=== PATIENT | female | born 1925 | race Caucasian/White ===

== ENCOUNTER 2016-06-12 17:45 | Inpatient (IN) | payer MEDICARE ==
--- NOTE | 2016-06-12 19:06 | EKG REPORT ---
SEVERITY:- ABNORMAL ECG - SINUS BRADYCARDIA REPOL ABNRM SUGGESTS ISCHEMIA, DIFFUSE LEADS : Confirmed by: Cain Felix MD 12-Jun-2016 19:05:49
--- NOTE | 2016-06-12 19:22 | ER Document Report ---
ED General - General Chief Complaint: Fainting Stated Complaint: EVALUATION Notes: Patient is an 89-year-old female with past medical history of hypertension, hypothyroidism, hyperlipidemia, and bradycardia as well as mild dementia who presents from her primary doctor's office with concerns of an episode of syncope yesterday as well as ongoing bradycardia. Patient was hospitalized in August 2015 for a similar presentation and was transferred to [facility] but informs me that they did not want to place a pacemaker at that time as they did not feel that her bradycardia was the cause of her episodes of syncope. She denies any symptoms today. Denies any symptoms at time of evaluation. States that her episode of syncope occurred yesterday while she was sweeping her steps. States she became lightheaded and fell down on the ground. Denies any significant trauma during that event. Nothing seems to trigger her episodes of syncope. Nothing prevents them or improves them. Denies any recent medication changes. At the time of my assessment she denies any chest pain, shortness of breath, weakness or numbness. TRAVEL OUTSIDE OF THE [place] IN LAST 30 DAYS: No - Related Data Allergies/Adverse Reactions: adhesive tape [Adhesive Tape] Allergy (Unknown, Verified 06/12/16 23:59) Sulfa (Sulfonamide Antibiotics) Allergy (Unknown, Verified 06/12/16 23:59) Home Medications: Current Home Medications Levothyroxine Sodium [Synthroid 0.075 mg Tablet] 0.075 mg PO DAILY 06/12/16 [ History] Lisinopril 5 mg PO DAILY 06/12/16 [History] Past Medical History - General Information source: Patient - Social History Smoking Status: Never Smoker Frequency of alcohol use: None Drug Abuse: None Lives with: Alone Family History: Reviewed & Not Pertinent - Past Medical History Cardiac Medical History: Reports: Hx Hypertension Psychiatric Medical History: Denies: Hx Depression Past Surgical History: Reports: Hx Hysterectomy - Immunizations Hx Diphtheria, Pertussis, Tetanus Vaccination: Yes Review of Systems - Review of Systems Notes: Constitutional: Negative for fever. HENT: Negative for sore throat. Eyes: Negative for visual changes. Cardiovascular: Negative for chest pain. Respiratory: Negative for shortness of breath. Gastrointestinal: Negative for abdominal pain, vomiting or diarrhea. Genitourinary: Negative for dysuria. Musculoskeletal: Negative for back pain. Skin: Negative for rash. Neurological: Negative for headaches, weakness or numbness. 10 point ROS negative except as marked above and in HPI. Physical Exam - Vital signs Vitals: Temp Pulse Resp BP Pulse Ox 97.7 F 50 L 14 169/51 H 95 06/12/16 17:53 06/12/16 17:53 06/12/16 17:53 06/12/16 17:53 06/12/16 17:53 Interpretation: Hypertensive, Bradycardic Notes: PHYSICAL EXAMINATION: GENERAL: Well-appearing, well-nourished and in no acute distress. HEAD: Atraumatic, normocephalic. EYES: Pupils equal round and reactive to light, extraocular movements intact, sclera anicteric, conjunctiva are normal. ENT: nares patent, oropharynx clear without exudates. Moist mucous membranes. NECK: Normal range of motion, supple without lymphadenopathy LUNGS: Breath sounds clear to auscultation bilaterally and equal. No wheezes rales or rhonchi. HEART: Regular rate and rhythm without murmurs ABDOMEN: Soft, nontender, normoactive bowel sounds. No guarding, no rebound. No masses appreciated. EXTREMITIES: Normal range of motion, no pitting or edema. No cyanosis. NEUROLOGICAL: No focal neurological deficits. Moves all extremities spontaneously and on command. PSYCH: Normal mood, normal affect. SKIN: Warm, Dry, normal turgor, no rashes or lesions noted. Course - Re-evaluation Re-evalutation: 06/12/16 19:21 Patient presents with no symptoms after being referred by her primary physician for concerns of symptomatic bradycardia with associated lightheadedness and episodes of syncope. Patient has had similar symptoms for the past several years. She was evaluated at [facility] in August 2015 and told that she did not need a pacemaker. She denies any symptoms at the time of my assessment. I discussed this case with cardiology electronics hardware design engineer Dr. 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 2300-patient was noted to be hypoxemic on continuous color television console monitor. She was emulated off pulse oximetry and dropped as low as 87%. On 2 L by nasal cannula she maintains her saturations into the mid 90s. I discussed this case with the hospitalist requested an arterial blood gas off oxygen. This did show hypoxemia. His hypoxemia may be the etiology of patient's frequent episodes of syncope given the lack of hypotension in the setting of her bradycardia as well as an elective physiology evaluation that did not feel a pacemaker was warranted. Given her hypoxemia, and frequent episodes of syncope I have admitted her to Dr. Pal for further observation, and diagnostic evaluation - Vital Signs Vital signs: Temp Pulse Resp BP Pulse Ox 97.8 F 50 L 13 150/54 H 94 06/13/16 01:47 06/12/16 17:53 06/13/16 01:01 06/13/16 01:01 06/13/16 01:01 - Laboratory Result Diagrams: 06/12/16 20:11 06/12/16 20:11 Laboratory results interpreted by me: 06/12/16 06/12/16 06/12/16 20:11 20:11 22:46 WBC 11.4 H Basophils % 2.1 H ABG pH 7.47 H ABG pO2 72.7 L ABG HCO3 29.0 H ABG Total CO2 30.3 H Potassium 3.4 L Chloride 97 L Carbon Dioxide 31 H BUN 21 H Est GFR ( Amer) 52 L Est GFR (Non-Af Amer) 43 L Glucose 134 H Calcium 11.3 H - Diagnostic Test Radiology reviewed: Image reviewed, Reports reviewed Radiology results interpreted by me: 06/12/16 23:47 Chest x-ray: No acute infiltrate - EKG Interpretation by Me Additional EKG results interpreted by me: 06/13/16 01:52 Sinus bradycardia. Rate 47. ST depressions of less than 0.25 mm in V4 through 6 unchanged from prior EKG. No ST elevations. Discharge - Discharge Clinical Impression: Bradycardia, Hypoxemia Condition: Fair Disposition: ADMITTED OBSERVATION Admitting Provider: Micaela Pal Unit Admitted: Telemetry
[2016-06-12 20:19] LABS: ABSOLUTE BASOPHILS # (AUTO) 0.2 10^3/uL (0.0-0.2); ABSOLUTE EOSINOPHILS # (AUTO) 0.4 10^3/uL (0.0-0.6); ABSOLUTE LYMPHOCYTES (AUTO) 4.1 10^3/uL (0.5-4.7); ABSOLUTE MONOCYTES (AUTO) 0.9 10^3/uL (0.1-1.4); ABSOLUTE NEUT (AUTO) 5.8 10^3/uL (1.7-8.2); BASOPHILS % (AUTO) 2.1 % (0-2); EOSINOPHILS % (AUTO) 3.3 % (0-6); HEMATOCRIT 46.1 % (36.0-47.0); HGB HCT DIFFERENCE -1.1; MEAN CORPUSCULAR HEMOGLOBIN 29.3 pg (27.0-33.4); MEAN CORPUSCULAR HGB CONC 32.6 g/dL (32.0-36.0); MEAN CORPUSCULAR VOLUME 90 fl (80-97); MONOCYTES % (AUTO) 7.5 % (3-13); RED BLOOD COUNT 5.12 10^6/uL (3.72-5.28); RED CELL DISTRIBUTION WIDTH 13.3 % (11.5-14.0); SEGMENTED NEUTROPHILS % (AUTO) 51.1 % (42-78); WHITE BLOOD COUNT 11.4 10^3/uL (4.0-10.5)
[2016-06-12 20:41] LABS: ANION GAP 15 (5-19); BLOOD UREA NITROGEN 21 mg/dL (7-20); CALCIUM 11.3 mg/dL (8.4-10.2); CARBON DIOXIDE 31 mmol/L (22-30); CHLORIDE 97 mmol/L (98-107); CREATININE RESULT 1.18 mg/dL (0.52-1.25); GLUCOSE 134 mg/dL (75-110); POTASSIUM 3.4 mmol/L (3.6-5.0); SODIUM 142.8 mmol/L (137-145)
[2016-06-12 21:13] LABS: THYROID STIMULATING HORMONE 4.16 uIU/mL (0.47-4.68)
[2016-06-12 23:23] LABS: ARTERIAL BLOOD BASE EXCESS 4.9 mmol/L; ARTERIAL BLOOD O2 SATURATION 95.5 % (94-98)
[2016-06-12] MEDS ORDERED: IPRATROPIUM/ALBUTEROL 0.5-2.5 MG/3 ML AMPUL NEB PRN (23:43)
[2016-06-12] MEDS ORDERED: ACETAMINOPHEN 325 MG TABLET PO PRN (23:43)
[2016-06-13] MEDS: NORMAL SALINE 1000 ML 1,000 ML IV SCH ×3 (00:34→10:28)
[2016-06-13] MEDS ORDERED: POTASSIUM CHLORIDE 10 MEQ TABLET.SA PO ONE (02:45)
[2016-06-13] MEDS ORDERED: LEVOFLOXACIN 500 MG/D5W RTU 500 MG/100 ML RTUPB IV ONE (03:30)
--- NOTE | 2016-06-13 04:38 | PDOC H&P ---
History of Present Illness Admission Date/PCP: 06/12/16 23:43 BECCA SIFUENTES, Patient complains of: Syncope History of Present Illness: SONIA FRANKS is a 89 year old female with a past medical history of sick sinus syndrome, paroxysmal atrial fibrillation, symptomatic bradycardia, hypertension and mild dementia. Who is a poor historian but gives a history of syncope falling to the floor yesterday without trauma. In the emergency room she has bradycardia in the high 30s pulse oximetry in the 80s which is verified by ABG ,as well as episodes of dizziness and referred to the hospitalist for admission. After supplemental oxygen is placed her bradycardia improves to the 50s with resolution of symptoms. Unfortunately, after explaining her symptoms may be related to lack of oxygen she replies that she is not going to use oxygen at home. She states a provider has recommended she discontinue Eliquis she cannot recall her last dose. Patient had evaluation in August 2015 in [place] at [facility] for permanent pacemaker placement which was concluded as unnecessary at that time. Past Medical History Cardiac Medical History: Reports: Atrial Fibrillation, Hypertension, Other - Symptomatic bradycardia, sick sinus syndrome Psychiatric Medical History: Denies: Depression Past Surgical History Past Surgical History: Reports: Hysterectomy Social History Information Source: Patient, [facility] Records Lives with: Alone Smoking Status: Never Smoker Frequency of Alcohol Use: None Hx Recreational Drug Use: No Drugs: None Hx Prescription Drug Abuse: No - Advance Directive Resuscitation Status: Full Code Family History Family History: Reviewed & Not Pertinent, Hypertension Parental Family History Reviewed: Yes Children Family History Reviewed: Yes Sibling(s) Family History Reviewed.: Yes Medication/Allergy Home Medications: Amlodipine Besylate [Amlodipine Besylate] 5 mg PO DAILY 09/10/15 Citalopram Hydrobromide [Citalopram HBr] 10 mg PO DAILY 09/10/15 Rivaroxaban [Xarelto] 20 mg PO DAILY 09/10/15 Famotidine 1 tab PO DAILY 09/11/15 Hydrochlorothiazide 1 tab PO DAILY 09/11/15 Oxybutynin Chloride 1 tab PO BID 09/11/15 Levothyroxine Sodium [Synthroid 0.075 mg Tablet] 0.075 mg PO DAILY 06/12/16 Lisinopril 5 mg PO DAILY 06/12/16 Allergies/Adverse Reactions: adhesive tape [Adhesive Tape] Allergy (Unknown, Verified 06/12/16 23:59) Sulfa (Sulfonamide Antibiotics) Allergy (Unknown, Verified 06/12/16 23:59) Review of Systems ROS unobtainable: Due to mental status Physical Exam Vital Signs: Temp Pulse Resp BP Pulse Ox 97.8 F 50 L 9 L 149/62 H 96 06/13/16 01:47 06/12/16 17:53 06/13/16 02:31 06/13/16 02:31 06/13/16 02:31 General appearance: PRESENT: no acute distress, well-developed, well-nourished Head exam: PRESENT: atraumatic, normocephalic Eye exam: PRESENT: conjunctiva pink, EOMI, PERRLA. ABSENT: scleral icterus Ear exam: PRESENT: normal external ear exam Mouth exam: PRESENT: moist, tongue midline Neck exam: ABSENT: carotid bruit, JVD, lymphadenopathy, thyromegaly Respiratory exam: PRESENT: clear to auscultation concha. ABSENT: rales, rhonchi, wheezes Cardiovascular exam: PRESENT: RRR. ABSENT: diastolic murmur, rubs, systolic murmur Pulses: PRESENT: normal dorsalis pedis pul Vascular exam: PRESENT: normal capillary refill GI/Abdominal exam: PRESENT: normal bowel sounds, soft. ABSENT: distended, guarding, mass, organolmegaly, rebound, tenderness Rectal exam: PRESENT: deferred Extremities exam: PRESENT: full ROM, +1 edema. ABSENT: calf tenderness, clubbing, pedal edema Neurological exam: PRESENT: alert, awake, oriented to person, oriented to place , oriented to time, oriented to situation, CN II-XII grossly intact. ABSENT: motor sensory deficit Psychiatric exam: PRESENT: appropriate affect, normal mood. ABSENT: homicidal ideation, suicidal ideation Skin exam: PRESENT: dry, intact, warm. ABSENT: cyanosis, rash Results Impressions: Chest X-Ray 06/12/16 20:30 IMPRESSION: No acute cardiopulmonary findings. Assessment & Plan - Diagnosis (1) Near syncope Is this a current diagnosis for this admission?: YesPlan: Patient reports multiple previous episodes unclear if sustaining trauma and given dementia I'm unclear of the validity of her complaint. That said she does appear to have bradycardia associated with hypoxia which is improved with supplemental oxygen. Will monitor on a telemetry bed obtaining orthostatic blood pressures and consideration of cardiology consult. Discontinuation of Celexa and Norvasc. (2) Bradycardia Is this a current diagnosis for this admission?: YesPlan: Discontinuation of Norvasc and Celexa telemetry monitoring continuing supplemental oxygen for possible hypoxemic induced bradycardia and cardiology consult (3) Hypoxemia Is this a current diagnosis for this admission?: YesPlan: Unclear cause, possible bronchitis initiate empiric antibiotics, continue supplement oxygen incentive christopher, trial albuterol and Atrovent. (4) Alkalosis, metabolic Is this a current diagnosis for this admission?: YesPlan: She does have have mild metabolic alkalosis I'll discontinue hydrochlorothiazide fluid challenge and reevaluate chem7. - Time Time Spent: 50 to 70 Minutes
[2016-06-13] MEDS: HEPARIN SOD (PORCINE) 5,000 UNIT/ML 1 ML SYRINGE SUBCUT SCH ×2 (05:52→17:17)
[2016-06-13] MEDS: LEVOTHYROXINE SODIUM 0.075 MG TABLET PO SCH (05:53)
[2016-06-13 08:58] LABS: ABSOLUTE BASOPHILS # (AUTO) 0.1 10^3/uL (0.0-0.2); ABSOLUTE EOSINOPHILS # (AUTO) 0.5 10^3/uL (0.0-0.6); ABSOLUTE LYMPHOCYTES (AUTO) 3.1 10^3/uL (0.5-4.7); ABSOLUTE NEUT (AUTO) 6.3 10^3/uL (1.7-8.2); BASOPHILS % (AUTO) 1.2 % (0-2); EOSINOPHILS % (AUTO) 4.8 % (0-6); HEMATOCRIT 44.2 % (36.0-47.0); HEMOGLOBIN 14.2 g/dL (12.0-15.5); HGB HCT DIFFERENCE -1.6; LYMPHOCYTES % (AUTO) 27.7 % (13-45); MEAN CORPUSCULAR HEMOGLOBIN 29.3 pg (27.0-33.4); MEAN CORPUSCULAR HGB CONC 32.2 g/dL (32.0-36.0); MEAN CORPUSCULAR VOLUME 91 fl (80-97); MONOCYTES % (AUTO) 9.2 % (3-13); RED BLOOD COUNT 4.87 10^6/uL (3.72-5.28); RED CELL DISTRIBUTION WIDTH 13.5 % (11.5-14.0); SEGMENTED NEUTROPHILS % (AUTO) 57.1 % (42-78); WHITE BLOOD COUNT 11.1 10^3/uL (4.0-10.5)
[2016-06-13 09:22] LABS: ANION GAP 12 (5-19); BLOOD UREA NITROGEN 17 mg/dL (7-20); CALCIUM 10.3 mg/dL (8.4-10.2); CARBON DIOXIDE 29 mmol/L (22-30); CHLORIDE 103 mmol/L (98-107); GLUCOSE 99 mg/dL (75-110); POTASSIUM 4.2 mmol/L (3.6-5.0); SODIUM 143.8 mmol/L (137-145)
[2016-06-13] MEDS ORDERED: CITALOPRAM HYDROBROMIDE 20 MG TABLET PO SCH (10:00)
[2016-06-13] MEDS: LISINOPRIL 5 MG TABLET PO SCH (10:27)
[2016-06-13] MEDS: DOCUSATE SODIUM 100 MG CAPSULE PO SCH ×2 (10:27→17:17)
[2016-06-13] MEDS: FAMOTIDINE 20 MG TABLET PO SCH (10:27)
[2016-06-13] MEDS: OXYBUTYNIN CHLORIDE 5 MG TABLET PO SCH ×2 (10:28→17:42)
[2016-06-13] MEDS: RIVAROXABAN 10 MG TABLET PO SCH (10:28)
[2016-06-13] MEDS: LEVOFLOXACIN 500 MG/D5W RTU 500 MG/100 ML RTUPB IV SCH (22:48)
--- NOTE | 2016-06-14 01:18 | CONSULTATION REPORT E ---
Consultation Report NAME: SONIA FRANKS : 1925 AGE: 89Y DATE: 06/13/2016 307 A TO: UBALDO ADDISON M.D. FROM: CECIL GALICIA M.D. Requesting Physician REASON FOR CONSULTATION: Bradycardia, *------* symptomatic and *------* syncope. HISTORY OF PRESENT ILLNESS: The patient is an 89-year-old female with known history of hypertension and possibly sick sinus syndrome with a history of paroxysmal atrial fibrillation, bradycardia, and mild intermittent dementia, who at present seems to be oriented x3. She states that she recently had episodes where she feels very weak and feels like she is going to pass out but does not really have syncope. She has no lost consciousness but she sits down so that she would not fall. When she came to the emergency room, heart rate was in the 30s but with an adequate blood pressure. The patient at present denies any chest pain or discomfort and neither did she have chest pain or discomfort after the fall without any loss of consciousness. There is no confusion. There is no focal weakness. There are no palpitations. There was no PND, orthopnea or leg edema. PAST MEDICAL HISTORY: She denies any injuries. She has had several such episodes and she is very vehement that she did not lose consciousness. She just felt that she had an unsteady gait. Of note, when she came in yesterday, her O2 sats were low with pulse oximetry in the 80s, but the patient's heart rate did berry picker when she was placed on oxygen. At present the patient has a heart rate of 43 beats per minute but with a stable blood pressure and is awake, alert and oriented x3 with no focal deficit. The patient at that time was noted to be sleeping just prior to my waking her up. Past medical history is positive for paroxysmal atrial fibrillation, no recurrence symptomatically such as rapid palpitations. History of several falls with dizziness and feeling that she would pass out but has never passed out. She would sit down to prevent any injury. There is no history of seizures, no history of TIA or CVA, no history of asthma or COPD or recent cough or sputum production. There is no history of pulmonary embolism, no history of sleep apnea, no history of diabetes mellitus. The patient has a history of hypothyroidism and is on replacement for that. She also has a history of depression. She is only on a small dose of Celexa, which should not cause these untoward effects. The patient was admitted here in August of 2015 with bradycardia thought to be symptomatic, and the patient was transferred to [facility]. From the records I find she was thought not to be a candidate for permanent pacemaker placement. I do not see that the patient had any tilt testing or EP testing except for a treadmill stress test and heart rate went up from 64 to 94, showing that she had no chronotropic incompetence. Her target heart rate was 100 beats per minute and, hence, it was thought that the patient did not need it. Also, there is no recent recurrence of atrial fibrillation. She had an echo there at that time which showed that the left ventricle is normal sized, there is normal left ventricular wall thickness. The left ventricular ejection fraction is normal. There were no regional wall motion abnormalities seen. There was mild LV dysfunction. The left atrium was mildly dilated. Mitral valve leaflets appeared to be thickened but opened well. There was mild mitral regurgitation. There was moderate to severe tricuspid regurgitation. The right ventricular systolic pressure is greater than 60 mmHg. The transmitral Sectral Doppler flow pattern is suggestive of restrictive physiology and trace aortic regurgitation. PAST SURGICAL HISTORY: Positive for hysterectomy and also cataract surgery. ALLERGIES: 1. ADHESIVE TAPE. 2. SULFA. 3. SULFONAMIDES. 4. ANTIBIOTICS. SOCIAL HISTORY: This patient does not smoke. There is no history of EtOH abuse. FAMILY HISTORY: Positive for hypertension. CODE STATUS: The patient is a FULL CODE and she states that she has a son and daughter and the son is the surrogate healthcare decision maker, and the son lives in an outside state. MEDICATIONS: 1. Acetaminophen 650 mg p.o. q.4 h. p.r.n. 2. Colace 100 mg p.o. b.i.d. 3. Pepcid 20 mg p.o. daily. 4. Levaquin 500 mg and 100 mL IV at bedtime. 5. She did get normal saline bolus 1000 mL IV bag x2 last night. 6. Ipratropium albuterol 3 mL nebulizer treatment q.6 h. p.r.n. 7. Levofloxacin 500 mg injection IV daily at night. 8. Levothyroxine 0.075 mg p.o. daily. 9. Lisinopril 5 mg p.o. daily. 10. Ditropan 5 mg p.o. b.i.d. 11. She did get one replacement with KCl early this morning. 12. Xarelto 20 mg daily. 13. Her Celexa which was at 10 mg has been stopped. PHYSICAL EXAMINATION: GENERAL: Patient is well built and well nourished and seems to be in no acute distress and at present she seems to be oriented x3. As per the nurse, the patient has intermittent dementia but when I saw her, the patient was awake, alert and oriented x3 and was able to give a good history. VITAL SIGNS: She is afebrile with a temperature of 97.5 degrees Fahrenheit. Pulse is 43 beats per minute, blood pressure is 141/47, respirations are 19 per minute, 02 sats are 97% on 1 L nasal cannula. HEENT: Head is atraumatic, normocephalic. Eyes: Pupils are equal, round, regular, reactive to light and accommodation. Extraocular movements are normal. There is no conjunctival pallor. There is no scleral icterus. Ears: Tympanic membranes are intact. External auditory canals are clear. Nose: There is no deviated nasal septum. There is no inflammation of the nasal mucous membranes. Mouth: Mucous membranes of the mouth are moist. Tongue is moist. There are no ulcers. There is no bleeding from the gums. Throat: There is no redness of the oropharynx. There is no exudate. Carotid sinus massage after intervals on each side does not show hypersensitivity carotid reflex. SKIN: There are no skin rashes. There is no petechia or ecchymosis. There are no skin lesions. NECK: Supple. There is no JVD. Carotids are equal. There is bilateral carotid bruit present. There is no goiter. There is no lymphadenopathy. Trachea is central. LUNGS: Clear to auscultation and percussion. There is no chest wall tenderness. HEART: S1 and S2 are heard. There is no S3 gallop. There is no S4 gallop. There is a murmur of aortic sclerosis present and also murmur of mitral regurgitation present. There is no rub. There are no diastolic murmurs. ABDOMEN: Soft, nontender. There is no hepatosplenomegaly. Bowel sounds are well heard. EXTREMITIES: Femorals are slightly diminished. There are no femoral bruits. Leg pulses are diminished. There is no pedal edema. There is no DVT or cellulitis. There is no cyanosis or clubbing. CENTRAL NERVOUS SYSTEM: The patient is conscious, awake, alert, oriented x3 at present with no focal deficits. PSYCHIATRIC: The patient does not appear to be anxious or depressed. REVIEW OF SYSTEMS: CONSTITUTIONAL: There are no fever, chills or rigors. HEENT: Head: Denies any headaches. She has intermittent dizziness and feels weak and sits down so that she does not fall. Eyes: No history of amblyopia or diplopia. No history of amaurosis fugax. Ears: There is mild decrease in hearing. There is no recurrent ear infections. There is no tinnitus. Nose: There is no hay fever, no nose bleeds. Mouth: No history of altered taste sensation and no history of ulcers in the mouth. Throat: There is no odynophagia or dysphagia. No significant sore throats. SKIN: There are no skin rashes. There is no pruritus. There is no psoriasis. There is no yellowish discoloration of the skin. NECK: There is no painful or painless swellings in the neck, no goiter. LUNGS: There is no cough or sputum production. No wheezing. No history of asthma or COPD. The patient is a nonsmoker. There is no history of sleep apnea. There is no pleuritic chest pain. There is no hemoptysis. There is no history of hemoptysis. No history of pulmonary embolism. CARDIAC: No history of coronary artery disease. No history of VT or anginal symptoms. History of hypertension well controlled in spite of her heart rate being low. She probably has sick sinus syndrome in view of her age and aortic sclerosis and there might be some sclerosis of the SA/AV manny tract causing bradycardia, although this could be secondary to the patient's ischemia due to severe pulmonary hypertension. GASTROINTESTINAL: No history of GI bleed. No history of GERD present. No history of peptic ulcer disease. No history of altered bowel movements. No history of fatty food intolerance. No history of yellowish discoloration of the skin. RENAL: No history of renal failure. No history of hematuria, polyuria or dysuria. The patient is on Ditropan since she has some problems with holding urine. ENDOCRINE: No history of diabetes mellitus. No history of polydipsia or polyuria. History of hypothyroidism and her thyroid function seems to be normal this admission on replacement therapy. There is no hirsutism. There is no excessive sweating. MUSCULOSKELETAL: Denies osteoarthritis or collagen vascular disease. CENTRAL NERVOUS SYSTEM: No history of seizures, headaches or migraines. It appears that the patient might have some ambulating problems. Symptoms of weakness and dizziness with no definite syncope and the patient sits down and she has not had any injuries. She has no history of sleep apnea. PSYCHIATRIC: History of depression well controlled on medication. No history of suicidal ideation. No history of anxiety. HEMATOLOGICAL: No history of bleeding diathesis and no history of clotting disorders. VASCULAR: No history of symptoms of claudication of buttock or legs on walking and no history of DVT. History of severe pulmonary hypertension with right ventricular systolic pressure greater than 60 mmHg with moderate to severe tricuspid regurgitation found on echo of August 2015. DIAGNOSTIC TEST RESULTS: The patient's EKG shows sinus bradycardia. There is diffuse repolarization changes in diffuse leads. The patient's chest x-ray shows mild cardiac enlargement with normal vasculature, no opacities, masses or pneumothorax, no pleural effusion. As mentioned earlier, initially the patient was hypoxemic on room air with 02 saturation of 80% but subsequently on oxygen, the heart rate did improve. When the patient doses off, her heart rate goes down. Her white count is 11,100, hemoglobin is 14.2, hematocrit is 44.2, and the patient's platelet count is 156,000. The patient's potassium yesterday was 3.4 but today it came up to 4.2 after replacement. 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 Her calcium is 10.3. One set of troponin was negative. TSH is 4.16, free T4 is 1.39. She had an ABG yesterday which showed a pH of 7.47, her PCO2 was 40.8, her ABG PO2 was 72.7 and her O2 saturation on room air was 95.5. IMPRESSION: 1. Falls with near syncope, especially with exertion, most likely secondary to pulmonary hypertension. 2. Pulmonary hypertension, severe, most likely the cause of the patient's desaturation with exertion. 3. Also the patient has intermittent episodes of hypoxemia associated with bradycardia. 4. Bradycardia with stable blood pressure with normal perfusion; hence, unlikely to be the cause of the patient's symptoms. 5. Hypertension, well controlled. 6. Severe pulmonary hypertension. 7. Hypothyroidism, well controlled on replacement therapy. 8. History of depression. 9. Most likely the patient has sick sinus syndrome with bradycardia and paroxysmal atrial fibrillation. 10. Paroxysmal atrial fibrillation. 11. Aortic sclerosis and mild mitral regurgitation. 12. Moderate to severe tricuspid regurgitation. RECOMMENDATIONS: Would continue her current medications and the patient actually is not symptomatic from her bradycardia with a stable blood pressure. Would also get a nocturnal continuous oximetry and also would keep the patient on room air and ambulate the patient and recheck the patient's O2 sats to see if this is the cause of the patient's bradycardia, if patient's sats do drop and the patient becomes bradycardic. Continue Xarelto. Note, in the past the patient had hematuria and Xarelto was stopped for some time, but then has been restarted on it with no recurrence. NOTE: Forty minutes spent on the patient, with more than 50% of the time spent on direct patient care of the patient. Also discussions with the caregivers including attending physician in this case. Will follow with you. Thanking you. DICTATING PHYSICIAN: UBALDO ADDISON M.D. [id number] PHY#: [id number] ID: [id number] JOB#: [id number] ACCT: [id number] cc:UBALDO ADDISON M.D. >
[2016-06-14] MEDS: LEVOTHYROXINE SODIUM 0.075 MG TABLET PO SCH (05:20)
--- NOTE | 2016-06-14 10:45 | PDOC PROGRESS REPORT ---
Subjective Progress Note for:: 06/14/16 Subjective:: Patient denies any complaints. There is a family member at the bedside who does report that she has had syncopal episodes at home although patient does not remember these. Physical Exam Vital Signs: Temp Pulse Resp BP Pulse Ox 97.9 F 44 L 17 135/45 H 98 06/14/16 07:41 06/14/16 07:41 06/14/16 07:41 06/14/16 07:41 06/14/16 07:41 Pulse Oximeter Nocturnal Start: 06/13/16 19: 50 Freq: RTQ4 Status: Active Document 06/14/16 04:20 JSM (Rec: 06/14/16 04:46 JSM [id number]) Nocturnal Pulse Oximetry Equipment Usage Equipment in Use Oxygen Delivery Method (includes room Room Air air) O2 Sat by Pulse Oximetry (92-100) 92 Continuous SpO2 Machine # 7 Intake & Output 06/13/16 06/14/16 06/15/16 06:59 06:59 06:59 Intake Total 800 2412 120 Output Total 500 750 Balance 300 1662 120 Weight 70.1 kg 70.1 kg General appearance: PRESENT: no acute distress Head exam: PRESENT: atraumatic, normocephalic Eye exam: PRESENT: conjunctiva pink. ABSENT: scleral icterus Ear exam: PRESENT: normal external ear exam Mouth exam: PRESENT: moist, tongue midline Neck exam: ABSENT: JVD Respiratory exam: PRESENT: clear to auscultation concha. ABSENT: rales, rhonchi, wheezes Cardiovascular exam: PRESENT: bradycardia GI/Abdominal exam: PRESENT: normal bowel sounds, soft. ABSENT: distended, guarding, mass, organolmegaly, rebound, tenderness Extremities exam: ABSENT: calf tenderness, clubbing, pedal edema Neurological exam: PRESENT: alert, awake, oriented to person, oriented to place , oriented to time, oriented to situation, CN II-XII grossly intact. ABSENT: motor sensory deficit Psychiatric exam: PRESENT: appropriate affect Skin exam: PRESENT: dry, intact, warm. ABSENT: cyanosis, rash Results Laboratory Results: 06/13/16 08:10 06/13/16 08:10 Impressions: Chest X-Ray 06/12/16 20:30 IMPRESSION: No acute cardiopulmonary findings. Assessment & Plan - Diagnosis (1) Bradycardia Is this a current diagnosis for this admission?: YesPlan: Patient has a heart rate down into the 30s. Dr. Ballesteros states the patient has pulmonary hypertension which most likely is the cause for her bradycardia because of hypoxia. Patient has stated that she will not be wearing oxygen. (2) Hypoxemia Is this a current diagnosis for this admission?: YesPlan: The patient was adamant that she would not use home oxygen. We will ambulate the patient to see what her heart rate and pulse ox do. (3) Hypertension Is this a current diagnosis for this admission?: YesPlan: Blood pressures are stable. (4) Hypothyroidism Qualifiers: Hypothyroidism type: unspecified Qualified Code(s): E03.9 - Hypothyroidism, unspecified Is this a current diagnosis for this admission?: Yes (5) Near syncope Is this a current diagnosis for this admission?: YesPlan: It's not clear whether this is related to her bradycardic episodes or not. We' ll continue to monitor closely. (6) Paroxysmal atrial fibrillation Is this a current diagnosis for this admission?: YesPlan: Patient is bradycardic she is anticoagulated also. - Time Time Spent with patient: 25-34 minutes - Inpatient Certification Medical Necessity: Need Close Monitoring Due to Risk of Patient Decompensation
[2016-06-14] MEDS: FAMOTIDINE 20 MG TABLET PO SCH (11:11)
[2016-06-14] MEDS: RIVAROXABAN 10 MG TABLET PO SCH (11:11)
[2016-06-14] MEDS: OXYBUTYNIN CHLORIDE 5 MG TABLET PO SCH ×2 (11:11→18:18)
[2016-06-14] MEDS: LISINOPRIL 5 MG TABLET PO SCH (11:11)
[2016-06-14] MEDS: DOCUSATE SODIUM 100 MG CAPSULE PO SCH ×2 (11:11→18:19)
--- NOTE | 2016-06-14 16:40 | EKG REPORT ---
SEVERITY:- ABNORMAL ECG - SINUS BRADYCARDIA ATRIAL PREMATURE COMPLEX REPOL ABNRM SUGGESTS ISCHEMIA, LATERAL LEADS : Confirmed by: Cain Felix MD 14-Jun-2016 16:39:16
[2016-06-14] MEDS: SILDENAFIL CITRATE 20 MG TABLET PO SCH (18:19)
[2016-06-14] MEDS: LEVOFLOXACIN 500 MG/D5W RTU 500 MG/100 ML RTUPB IV SCH (22:49)
[2016-06-14] MEDS: HYDRALAZINE HCL 25 MG TABLET PO SCH (22:49)
[2016-06-15] MEDS: HYDRALAZINE HCL 25 MG TABLET PO SCH ×3 (05:31→22:09)
[2016-06-15] MEDS: LEVOTHYROXINE SODIUM 0.075 MG TABLET PO SCH (05:31)
[2016-06-15 06:39] LABS: ABSOLUTE BASOPHILS # (AUTO) 0.1 10^3/uL (0.0-0.2); ABSOLUTE EOSINOPHILS # (AUTO) 0.7 10^3/uL (0.0-0.6); ABSOLUTE LYMPHOCYTES (AUTO) 3.2 10^3/uL (0.5-4.7); ABSOLUTE MONOCYTES (AUTO) 1.1 10^3/uL (0.1-1.4); ABSOLUTE NEUT (AUTO) 4.3 10^3/uL (1.7-8.2); BASOPHILS % (AUTO) 1.4 % (0-2); HEMATOCRIT 39.1 % (36.0-47.0); HEMOGLOBIN 13.3 g/dL (12.0-15.5); HGB HCT DIFFERENCE 0.8; LYMPHOCYTES % (AUTO) 33.5 % (13-45); MEAN CORPUSCULAR HEMOGLOBIN 29.9 pg (27.0-33.4); MEAN CORPUSCULAR HGB CONC 33.9 g/dL (32.0-36.0); MEAN CORPUSCULAR VOLUME 88 fl (80-97); RED BLOOD COUNT 4.43 10^6/uL (3.72-5.28); RED CELL DISTRIBUTION WIDTH 13.5 % (11.5-14.0); SEGMENTED NEUTROPHILS % (AUTO) 46.1 % (42-78); WHITE BLOOD COUNT 9.4 10^3/uL (4.0-10.5)
[2016-06-15 07:16] LABS: ANION GAP 14 (5-19); BLOOD UREA NITROGEN 22 mg/dL (7-20); CALCIUM 9.7 mg/dL (8.4-10.2); CARBON DIOXIDE 22 mmol/L (22-30); CHLORIDE 106 mmol/L (98-107); CREATININE RESULT 1.11 mg/dL (0.52-1.25); GLUCOSE 91 mg/dL (75-110); POTASSIUM 3.8 mmol/L (3.6-5.0); SODIUM 141.7 mmol/L (137-145)
--- NOTE | 2016-06-15 11:25 | PDOC PROGRESS REPORT ---
Subjective Progress Note for:: 06/15/16 Subjective:: Patient denies any complaints. She ambulated yesterday and had no bradycardia or syncopal episodes. Physical Exam Vital Signs: Temp Pulse Resp BP Pulse Ox 98.0 F 48 L 18 129/31 H 99 06/15/16 07:22 06/15/16 07:22 06/15/16 07:22 06/15/16 07:22 06/15/16 07:22 Pulse Oximeter Nocturnal Start: 06/13/16 19: 50 Freq: RTQ4 Status: Complete Document 06/14/16 04:20 JSM (Rec: 06/14/16 04:46 JS [id number]) Nocturnal Pulse Oximetry Equipment Usage Equipment in Use Oxygen Delivery Method (includes room Room Air air) O2 Sat by Pulse Oximetry (92-100) 92 Continuous SpO2 Machine # 7 Intake & Output 06/14/16 06/15/16 06/16/16 06:59 06:59 06:59 Intake Total 2412 1230 Output Total 750 130 Balance 1662 1100 Weight 70.1 kg 74.1 kg General appearance: PRESENT: no acute distress Eye exam: PRESENT: conjunctiva pink. ABSENT: scleral icterus Mouth exam: PRESENT: moist, tongue midline Neck exam: ABSENT: JVD Respiratory exam: PRESENT: clear to auscultation concha. ABSENT: rales, rhonchi, wheezes Cardiovascular exam: PRESENT: bradycardia. ABSENT: systolic murmur GI/Abdominal exam: PRESENT: normal bowel sounds, soft. ABSENT: distended, guarding, mass, organolmegaly, rebound, tenderness Extremities exam: ABSENT: calf tenderness, clubbing, pedal edema Neurological exam: PRESENT: alert, awake, oriented to person, oriented to place , oriented to time, oriented to situation Psychiatric exam: PRESENT: appropriate affect Skin exam: PRESENT: dry, intact, warm. ABSENT: cyanosis, rash Results Laboratory Results: 06/15/16 06:14 06/15/16 06:14 06/15/16 06/15/16 06:14 06:14 WBC 9.4 RBC 4.43 Hgb 13.3 Hct 39.1 MCV 88 MCH 29.9 MCHC 33.9 RDW 13.5 Plt Count 149 L Seg Neutrophils % 46.1 Lymphocytes % 33.5 Monocytes % 12.0 Eosinophils % 7.0 H Basophils % 1.4 Absolute Neutrophils 4.3 Absolute Lymphocytes 3.2 Absolute Monocytes 1.1 Absolute Eosinophils 0.7 H Absolute Basophils 0.1 Sodium 141.7 Potassium 3.8 Chloride 106 Carbon Dioxide 22 Anion Gap 14 BUN 22 H Creatinine 1.11 Est GFR ( Amer) 56 L Est GFR (Non-Af Amer) 46 L Glucose 91 Calcium 9.7 Impressions: Chest X-Ray 06/12/16 20:30 IMPRESSION: No acute cardiopulmonary findings. Assessment & Plan - Diagnosis (1) Bradycardia Is this a current diagnosis for this admission?: YesPlan: Patient has a heart rate down into the 30s. Dr. Ballesteros states the patient has pulmonary hypertension which most likely is the cause for her bradycardia because of hypoxia. Patient has stated that she will not be wearing oxygen. She has not had any symptomatic bradycardia and does not need a pacemaker at this time. (2) Hypoxemia Is this a current diagnosis for this admission?: YesPlan: The patient was adamant that she would not use home oxygen. She is oxygenating adequately on room air when she ambulate. (3) Hypertension Is this a current diagnosis for this admission?: YesPlan: Blood pressures are stable. (4) Hypothyroidism Qualifiers: Hypothyroidism type: unspecified Qualified Code(s): E03.9 - Hypothyroidism, unspecified Is this a current diagnosis for this admission?: Yes (5) Near syncope Is this a current diagnosis for this admission?: YesPlan: It's not clear whether this is related to her bradycardic episodes or not. We' ll continue to monitor closely. (6) Paroxysmal atrial fibrillation Is this a current diagnosis for this admission?: YesPlan: Patient is bradycardic she is anticoagulated also. (7) Pulmonary hypertension Is this a current diagnosis for this admission?: YesPlan: Patient has severe pulmonary hypertension. Patient is being started on sildenafil by Dr. Ballesteros. The patient will need to avoid all nitrates in the future. - Time Time Spent with patient: 25-34 minutes - Inpatient Certification Medical Necessity: Need Close Monitoring Due to Risk of Patient Decompensation - Plan Summary Plan Summary: We will try to discharge to rehabilitation tomorrow or whenever bed becomes available.
[2016-06-15] MEDS: FAMOTIDINE 20 MG TABLET PO SCH (12:34)
[2016-06-15] MEDS: OXYBUTYNIN CHLORIDE 5 MG TABLET PO SCH ×2 (12:34→17:34)
[2016-06-15] MEDS: RIVAROXABAN 10 MG TABLET PO SCH (12:34)
[2016-06-15] MEDS: LISINOPRIL 5 MG TABLET PO SCH (12:35)
[2016-06-15] MEDS: DOCUSATE SODIUM 100 MG CAPSULE PO SCH ×2 (12:35→17:34)
[2016-06-15] MEDS: SILDENAFIL CITRATE 20 MG TABLET PO SCH ×3 (12:35→17:34)
--- NOTE | 2016-06-15 15:23 | PROGRESS NOTE E ---
Progress Note NAME: SONIA FRANKS : 1925 AGE: 89Y DATE: 06/15/2016 ROOM: 422 SUBJECTIVE: The patient denies any chest pain or discomfort. She is slightly confused today. She is oriented to person and place but not oriented to time. The nurse that the patient ambulated without any problems. She is still bradycardic but maintaining good blood pressure. She denies any shortness of breath. She does not appear to be short of breath. There is no arrhythmia seen on the monitor except for bradycardia. There are no TIA or CVA symptoms. OBJECTIVE: VITAL SIGNS: On examination, the patient is afebrile with a temperature of 98 degrees Fahrenheit. Pulse is 48 beats per minute. Blood pressure is 129/31 lying down, sitting is 141/40, and standing is 134/45. Her respirations are 18 per minute. O2 saturations are 99% on room air. GENERAL: Note that the patient is well built and well nourished and seems to be in no acute distress. HEAD: Normocephalic/atraumatic. EYES: Pupils are equal, round, regular, reactive to light and accommodation. Extraocular movements are normal. There is no conjunctival pallor. There is no scleral icterus. EARS, NOSE, AND THROAT: Negative. NECK: Supple. There is no JVD. Carotids are equal. There are bilateral carotid bruits present. There is no goiter. There is no lymphadenopathy. Trachea is central. LUNGS: Clear to auscultation and percussion. There is no chest-wall tenderness. HEART: S1, S2 is heard. There is no S3 gallop. There is no S4 gallop. There is murmur of aortic sclerosis present and also murmur of mitral regurgitation present. There is no rub. There are no diastolic murmurs heard. ABDOMEN: Soft, nontender. There is no hepatosplenomegaly. Bowel sounds are well heard. EXTREMITIES: Femorals are slightly diminished. There is no femoral bruit. Leg pulses are diminished. There is no pedal edema. There is no DVT or cellulitis. There is no cyanosis or clubbing. CENTRAL NERVOUS SYSTEM: The patient is conscious, awake, alert, oriented x2 with no focal deficit. PSYCHIATRIC: The patient does not appear to be anxious or depressed. DIAGNOSTIC DATA: The patient's laboratory data shows a white count of 9,400, hemoglobin is 13.3, hematocrit is 39.1, and platelet count is 149,000. The patient's sodium is 141, potassium 3.8, chloride is 106, CO2 is 22, the patient's BUN is 22, creatinine is 1.11, and GFR is reduced at 46 mL which is renal insufficiency. The patient's glucose is 91. Her calcium is 9.7. IMPRESSION: 1. FALLS WITH NEAR SYNCOPE, AND QUESTION SYNCOPE (NOT ABLE TO VERIFY THIS), ESPECIALLY WITH EXERTION, MOST LIKELY SECONDARY TO PULMONARY HYPERTENSION. 2. COPD WITH PULMONARY HYPERTENSION, MOST LIKELY CAUSE OF PATIENT'S DESATURATION WITH EXERTION. 3. ALSO INDEPENDENT EPISODES OF HYPOXEMIA ASSOCIATED WITH BRADYCARDIA. 4. BRADYCARDIA WITH STABLE WITH NORMAL PERFUSION, HENCE UNLIKELY THE CAUSE OF PATIENT'S SYMPTOMS. 5. HYPERTENSION, FAIRLY WELL CONTROLLED. 6. SEVERE PULMONARY HYPERTENSION. 7. HYPOTHYROIDISM. 8. HISTORY OF DEPRESSION. 9. MOST LIKELY ALSO HAS SICK SINUS SYNDROME WITH BRADYCARDIA AND PAROXYSMAL ATRIAL FIBRILLATION. 10. PAROXYSMAL ATRIAL FIBRILLATION. 11. AORTIC SCLEROSIS WITH MILD MITRAL REGURGITATION. 12. MODERATE TO SEVERE TRICUSPID REGURGITATION. 13. ACUTE RENAL INSUFFICIENCY, MOST LIKELY SECONDARY TO THE LISINOPRIL, HENCE WILL DISCONTINUE THE LISINOPRIL AND INCREASE THE HYDRALAZINE NEEDED. PLAN: Note, we will continue her sildenafil which she is tolerating and Synthroid and breathing treatments and also continue antibiotics. We will also continue hydralazine. In view of the patient's renal insufficiency and patient's age, would decrease the Xarelto to 15 mg p.o. daily. Note, at the patient's request, I spoke to Ms. Dolly Valverde, the patient's long-time friend and almost a daughter to the patient, and she states that she has not seen the patient when she had those falls/questionable syncopal episodes. Also, the she wanted me to talk to the son, and I gave him my cell number and the son called. I spent about 10 minutes explaining to him in detail what is happening and that there is no hard evidence for a permanent pacemaker, and also the patient does not want a pacemaker even if we recommended one. Also, discussed the fact that the patient will be transferred to a rehab facility, and we will have them send a 30-day event monitor to the patient's rehab facility, and my telephone number has been given to contact me if she should have any problems. This has been discussed with the patient's son. The patient's son wants me to follow up the patient's 30-day event monitor and also follow up the patient in the office. Will do so. Note, 40 minutes were spent on the patient with more than 50% of the time spent in direct patient care and also reviewing the medications, adjusting the medications, and also discussions with the hospitalist taking care of the patient and also with the providers. DICTATING PHYSICIAN: UBALDO ADDISON M.D. [id number] PHY#: [id number] ID: [id number] JOB#: [id number] ACCT: [id number] cc:UBALDO ADDISON M.D. >
[2016-06-15] MEDS: RIVAROXABAN 15 MG TABLET PO SCH (17:34)
--- NOTE | 2016-06-15 18:43 | PROGRESS NOTE E ---
Progress Note NAME: SONIA FRANKS : 1925 AGE: 89Y DATE: 06/14/2016 ROOM: 422 SUBJECTIVE: Note that the patient is oriented x2, but she denies any chest pain or discomfort. When the patient ambulated, her saturations dropped to 84 with the patient being asymptomatic. The patient's nocturnal oximetry did show that the patient did have a significant amount of desaturation measuring 84% to 89% at sleep, but I am not sure that the patient is the type that would wear the CPAP because she told me that she would not even wear an oxygen nasal cannula. She denies any PND or orthopnea. There are no further syncopal episodes. There is no chest pain or discomfort. There is no shortness of breath. OBJECTIVE: GENERAL: On examination, the patient is well built and well nourished in no acute distress. VITAL SIGNS: She is afebrile with a temperature of 97.6 degrees Fahrenheit. Pulse is 41 beats per minute. Blood pressure 182/49. Respirations are 17 per minute. O2 saturations are 97% on room air. HEAD: Atraumatic/normocephalic. EYES: Pupils are equal, round, regular, reactive to light and accommodation. Extraocular movements are normal. There is no conjunctival pallor. There is no scleral icterus. EARS, NOSE, AND THROAT: Negative. NECK: Supple. There is no JVD. Carotids are equal. There are faint bilateral carotid bruits present. There is no goiter. There is no lymphadenopathy. Trachea is central. LUNGS: Clear to auscultation and percussion. There is no chest-wall tenderness. HEART: S1, S2 is heard. There is no S3 gallop. There is no S4 gallop. There is murmur of aortic sclerosis present and also murmur of mitral regurgitation and tricuspid regurgitation present. There is no rub. There are no diastolic murmurs. ABDOMEN: Soft, nontender. There is no hepatosplenomegaly. Bowel sounds are well heard. EXTREMITIES: Femorals are slightly diminished. There is no femoral bruit. Leg pulses are diminished. There is no pedal edema. There is no DVT or cellulitis. There is no cyanosis, clubbing. CENTRAL NERVOUS SYSTEM: The patient is conscious, awake, alert, oriented x2 with no focal deficit. PSYCHIATRIC: The patient does not appear to be anxious or depressed. DIAGNOSTIC DATA: The patient's EKG shows sinus bradycardia with repolarization abnormality suggesting ischemia in the lateral leads. There is an APC present. There is no recurrence of atrial fibrillation. ASSESSMENT: 1. FALLS WITH NEAR SYNCOPE, QUESTION SYNCOPE. I AM NOT ABLE TO VERIFY THIS, ESPECIALLY WITH THE EXERTION MOST LIKELY SECONDARY TO PULMONARY HYPERTENSION. 2. COPD WITH PULMONARY HYPERTENSION, MOST LIKELY CAUSE OF THE PATIENT'S DESATURATION WITH EXERTION. 3. ALSO INDEPENDENT EPISODES OF HYPOXEMIA ASSOCIATED WITH BRADYCARDIA. 4. BRADYCARDIA WITH STABLE AND WITH NORMAL PERFUSION, AND HENCE LIKELY TO BE THE CAUSE OF PATIENT'S SYMPTOMS. 5. HYPERTENSION, UNCONTROLLED. 6. SEVERE PULMONARY HYPERTENSION. 7. HYPOTHYROIDISM. 8. HISTORY OF DEPRESSION. 9. MOST LIKELY A SICK SINUS SYNDROME WITH BRADYCARDIA AND PAROXYSMAL ATRIAL FIBRILLATION. 10. PAROXYSMAL ATRIAL FIBRILLATION. 11. AORTIC SCLEROSIS WITH MILD MITRAL REGURGITATION. 12. MODERATE TO SEVERE TRICUSPID REGURGITATION. 13. MILD RENAL INSUFFICIENCY. 14. DESATURATION EPISODES MENTIONED EARLIER, BUT PATIENT WILL NOT IN MY OPINION WEAR OXYGEN, AND THE PATIENT ALSO REFUSES. RECOMMENDATION: Would recommend starting the patient on sildenafil to see if this will help the pulmonary hypertension. Also would start the patient on hydralazine 25 mg p.o. q.8 h. Continue all her other medications including thyroid replacement. Note that the patient is FULL CODE. Her son is her surrogate healthcare decision maker. Note, more than 35 minutes were spent on this patient with more than 50% of the time on direct patient care and also reviewing the patient's medications, starting her on new medications, and discussions of the oximetry results with the patient. Also discussed with the other caregivers on the case. Will try to reach the son tomorrow. Will follow with you. DICTATING PHYSICIAN: UBALDO ADDISON M.D. [id number] PHY#: [id number] ID: [id number] JOB#: [id number] ACCT: [id number] cc:UBALDO ADDISON M.D. >
[2016-06-15] MEDS: LEVOFLOXACIN 500 MG/D5W RTU 500 MG/100 ML RTUPB IV SCH (22:09)
[2016-06-16] MEDS: LEVOTHYROXINE SODIUM 0.075 MG TABLET PO SCH (06:13)
[2016-06-16] MEDS: HYDRALAZINE HCL 25 MG TABLET PO SCH ×3 (06:13→21:48)
[2016-06-16 09:18] LABS: ANION GAP 12 (5-19); BLOOD UREA NITROGEN 30 mg/dL (7-20); CALCIUM 9.6 mg/dL (8.4-10.2); CARBON DIOXIDE 24 mmol/L (22-30); CHLORIDE 106 mmol/L (98-107); CREATININE RESULT 1.37 mg/dL (0.52-1.25); GLUCOSE 91 mg/dL (75-110); SODIUM 141.5 mmol/L (137-145)
[2016-06-16] MEDS ORDERED: HYDROCHLOROTHIAZIDE 25 MG TABLET PO SCH (10:00)
[2016-06-16] MEDS ORDERED: LEVOTHYROXINE SODIUM 0.075 MG TABLET PO SCH (10:00)
[2016-06-16] MEDS: DOCUSATE SODIUM 100 MG CAPSULE PO SCH ×2 (10:32→18:02)
[2016-06-16] MEDS: OXYBUTYNIN CHLORIDE 5 MG TABLET PO SCH ×4 (10:32→18:01)
[2016-06-16] MEDS: SILDENAFIL CITRATE 20 MG TABLET PO SCH ×3 (10:32→18:01)
--- NOTE | 2016-06-16 12:00 | XCELERA REPORT ---
[address] [address] Transthoracic Echocardiogram Report Name: SONIA FRANKS Age: 89 yrs Gender: Female : 1925 Patient Status: Inpatient Patient Location: 4W\S\422\S\A Study Date: 06/16/2016 09:51 AM Height: 66 in Weight: 163 lb BSA: 1.8 m2 Procedure: A two-dimensional transthoracic echocardiogram with color flow and Doppler was performed. The study was technically difficult with many images being suboptimal in quality. Reason For Study: MR /TR/Pulmonary Hypertension History: MR /TR/Pulmonary Hypertension. Ordering Physician: VERONICA ADDISON Performed By: Mariaa Pruitt Interpretation Summary The left ventricle is normal in size. There is normal left ventricular wall thickness. LV EF is > than 65% Left ventricular systolic function is normal. Doppler measurements suggest normal left ventricular diastolic function The left ventricular wall motion is normal. There is no thrombus. The left atrial size is normal. There is mild mitral annular calcification. There is no evidence of mitral valve prolapse. There is no vegetation seen on the mitral valve. There is no mitral valve stenosis. There is a trace amount of mitral regurgitation The aortic valve is trileaflet. The aortic valve opens well. There is no aortic valvular vegetation. There is no aortic valve stenosis There is no LVOT obstruction. There is a trace amount of aortic regurgitation There is no tricuspid stenosis. There is a mild to moderate amount of tricuspid regurgitation There is servere pulmonary hypertension by echo RVSP is 71 mm of Hg , with RA mean of 10. Small pericardial effusion with no evidence of tamponade. MMode/2D Measurements \T\ Calculations RVDd: 3.2 cm LVIDd: 4.8 cmFS: 45.1 % Ao root diam: 3.3 cm IVSd: 1.1 cm LVIDs: 2.6 cmEDV(Teich): 108.1 ml LVPWd: 1.1 cmESV(Teich): 25.5 ml Ao root area: 8.4 cm2 EF(Teich): 76.4 % LA dimension: 2.7 cm LVOT diam: 2.0 cm LVOT area: 3.1 cm2 Doppler Measurements \T\ Calculations MV E max zoraida: MV P1/2t max zoraida: Ao V2 max: LV V1 max P.5 cm/sec 117.0 cm/sec 155.4 cm/sec 7.3 mmHg MV A max zoraida: MV P1/2t: 86.0 msec Ao max PG: LV V1 max: 33.6 cm/sec MVA(P1/2t): 2.6 cm2 9.7 mmHg 134.8 cm/sec MV E/A: 3.5 MV dec slope: OSIRIS(V,D): 2.7 cm2 398.6 cm/sec2 MV dec time: 0.30 sec PA V2 max: PI end-d zoraida: TR max zoraida: 89.3 cm/sec 107.2 cm/sec 388.2 cm/sec PA max PG: TR max P.2 mmHg 60.3 mmHg Left Ventricle The left ventricle is normal in size. There is normal left ventricular wall thickness. LV EF is > than 65%. Left ventricular systolic function is normal. Doppler measurements suggest normal left ventricular diastolic function. The left ventricular wall motion is normal. There is no thrombus. Right Ventricle The right ventricle is not well visualized secondary to technical limitations. Atria The right atrium is normal. The left atrial size is normal. Mitral Valve There is mild mitral annular calcification. There is no evidence of mitral valve prolapse. There is no vegetation seen on the mitral valve. There is no mitral valve stenosis. There is a trace amount of mitral regurgitation. Aortic Valve The aortic valve is trileaflet. The aortic valve opens well. There is no aortic valvular vegetation. There is no aortic valve stenosis. There is no LVOT obstruction. There is a trace amount of aortic regurgitation. Tricuspid Valve There is no tricuspid stenosis. There is a mild to moderate amount of tricuspid regurgitation. There is servere pulmonary hypertension by echo. RVSP is 71 mm of Hg , with RA mean of 10. Pulmonic Valve There is no pulmonic valvular stenosis. There is a trace amount of pulmonic regurgitation. Great Vessels The aortic root is normal size. Effusions Small pericardial effusion with no evidence of tamponade. : VERONICA ADDISON > Veronica Addison
--- NOTE | 2016-06-16 12:45 | PDOC PROGRESS REPORT ---
Subjective Progress Note for:: 06/16/16 Subjective:: The patient states to feel relatively well. She appears to be confused on what is going on. She is hard of hearing and does not have her hearing aids in. One of his hearing aids is not working. The other one was placed in her ear and we had a long conversation. Advised patient about my conversation with her son loss Thursday with recommendation for assisted living and short-term rehabilitation. Advised the patient that I have suggested to her son that she cannot live on her own both because of her hearing trouble and dementia. Physical Exam Vital Signs: Temp Pulse Resp BP Pulse Ox 98.1 F 33 L 16 110/42 L 97 06/16/16 07:15 06/16/16 07:15 06/16/16 07:15 06/16/16 07:15 06/16/16 07:15 Pulse Oximeter Nocturnal Start: 06/13/16 19: 50 Freq: RTQ4 Status: Complete Document 06/14/16 04:20 MARKUS (Rec: 06/14/16 04:46 [facility] [id number]) Nocturnal Pulse Oximetry Equipment Usage Equipment in Use Oxygen Delivery Method (includes room Room Air air) O2 Sat by Pulse Oximetry (92-100) 92 Continuous SpO2 Machine # 7 Intake & Output 06/15/16 06/16/16 06/17/16 06:59 06:59 06:59 Intake Total 1230 940 Output Total 130 Balance 1100 940 Weight 74.1 kg 73.7 kg General appearance: PRESENT: no acute distress, hard of hearing Head exam: PRESENT: atraumatic Eye exam: PRESENT: conjunctiva pink Neck exam: ABSENT: carotid bruit, JVD Respiratory exam: PRESENT: rhonchi Cardiovascular exam: PRESENT: bradycardia Pulses: PRESENT: normal radial pulses, +1 pedal pulses bilateral Vascular exam: PRESENT: normal capillary refill GI/Abdominal exam: PRESENT: normal bowel sounds, soft Extremities exam: PRESENT: full ROM Musculoskeletal exam: PRESENT: ambulatory Neurological exam: PRESENT: alert, oriented to person Psychiatric exam: PRESENT: anxious, other Results Laboratory Results: 06/15/16 06:14 06/16/16 08:06 06/16/16 08:06 Sodium 141.5 Potassium 4.0 Chloride 106 Carbon Dioxide 24 Anion Gap 12 BUN 30 H Creatinine 1.37 H Est GFR ( Amer) 44 L Est GFR (Non-Af Amer) 36 L Glucose 91 Calcium 9.6 Impressions: Chest X-Ray 06/12/16 20:30 IMPRESSION: No acute cardiopulmonary findings. Assessment & Plan - Diagnosis (1) Bradycardia Is this a current diagnosis for this admission?: YesPlan: Possibly related to severe pulmonary hypertension with mild hypoxemia. The patient categorically refuses oxygen at home. (2) Pulmonary hypertension Is this a current diagnosis for this admission?: YesPlan: The patient started on sildenafil (3) Recurrent falls Is this a current diagnosis for this admission?: YesPlan: Most probably related to her bradycardia symptomatic without any trauma (4) Paroxysmal atrial fibrillation Is this a current diagnosis for this admission?: YesPlan: Presently rate controlled and anticoagulated (5) Hypothyroidism Qualifiers: Hypothyroidism type: unspecified Qualified Code(s): E03.9 - Hypothyroidism, unspecified Is this a current diagnosis for this admission?: YesPlan: Continue present medications (6) Hypoxemia Is this a current diagnosis for this admission?: YesPlan: Possibly related to recent bronchitis and severe pulmonary hypertension (7) Hypertension Is this a current diagnosis for this admission?: YesPlan: Controlled with medications (8) Alkalosis, metabolic Is this a current diagnosis for this admission?: YesPlan: Possibly medication induced with borderline chronic kidney disease stage II (9) Chronic kidney disease (CKD) Qualifiers: Chronic kidney disease stage: stage 2 (mild) Qualified Code(s): N18.2 - Chronic kidney disease, stage 2 (mild) Is this a current diagnosis for this admission?: YesPlan: Possibly medications related. We have stopped the medications and rehydrated (10) Dementia Is this a current diagnosis for this admission?: YesPlan: Possibly related to 4 age, small vessel disease, and exacerbated by hearing loss (11) Hearing loss Is this a current diagnosis for this admission?: YesPlan: Possibly related to nonfunctioning hearing aids
[2016-06-16] MEDS: RIVAROXABAN 15 MG TABLET PO SCH (18:01)
--- NOTE | 2016-06-16 20:13 | PROGRESS NOTE E ---
Progress Note NAME: SONIA FRANKS : 1925 AGE: 89Y DATE: 06/16/2016 ROOM: 422 SUBJECTIVE: The patient continues to be bradycardic with a heart rate anywhere between 44 to 52 with a stable blood pressure. She denies any syncope or presyncope or dizziness or weakness. There is no PND or orthopnea. There is no shortness of breath. There is no chest pain, but the patient is slightly confused. There are no TIA or CVA symptoms. There is no ventricular arrhythmia seen on the monitor. There is recurrence of atrial fibrillation on this patient. The patient is afebrile. OBJECTIVE: GENERAL: On examination, the patient is well built and well nourished in no acute distress. VITAL SIGNS: She is afebrile with temperature of 98 degrees Fahrenheit. Pulse is 44 to 52 beats per minute. Blood pressure is 127/35. Respirations are 16 per minute. O2 saturations are 99% on room air. HEENT: Head is atraumatic, normocephalic. Eyes: Pupils are equal, round, regular, reactive to light and accommodation. Extraocular movements normal. There is no conjunctival pallor. There is no scleral icterus. ENT is negative. NECK: Supple. There is no JVD. Carotids are equal. There are faint bilateral carotid bruits present. There is no goiter. There is no lymphadenopathy. Trachea is central. LUNGS: Clear to auscultation and percussion. There is no chest wall tenderness. CARDIOVASCULAR: S1, S2 are heard. There is no S3 gallop. There is no S4 gallop. There is a murmur of aortic sclerosis present and also murmur of mitral regurgitation and tricuspid regurgitation present. There is no rub. There is no diastolic murmur. ABDOMEN: Soft, nontender. There is no hepatosplenomegaly. Bowel sounds are well heard. EXTREMITIES: Femorals are slightly diminished. There are no femoral bruits. Leg pulses are diminished. There is no pedal edema. There is no DVT or cellulitis. There is no cyanosis or clubbing. CENTRAL NERVOUS SYSTEM: The patient is conscious, awake, alert, oriented x2 with no focal deficit. PSYCHIATRIC: The patient does not appear to be anxious or depressed. LABORATORY DATA: The patient's echocardiogram showed that the left ventricle is normal in size. There is no LVH. The LV ejection fraction is greater than 65%. The left ventricular diastolic function is normal. The left ventricular wall motion is normal. There is mild mitral annular calcification present. There is no evidence of mitral valve prolapse. There is no mitral valve stenosis. There is trace amount of mitral regurgitation. The aortic valve is trileaflet. The aortic valve is without any stenosis. There is no LVOT obstruction. There is trace amount of aortic regurgitation. There is no tricuspid stenosis. There is mild to moderate amount of tricuspid regurgitation. There is severe pulmonary hypertension by echo. Right ventricular systolic pressure is 71 mmHg with a mean of 10. There is a small pericardial effusion with no evidence of tamponade. The patient's sodium is 141.5, potassium 4.0, chloride 106. The patient's CO2 is 24. The patient's BUN is 30; creatinine is 1.37. GFR is reduced at 36. Glucose 91. Calcium is 9.6. ASSESSMENT: 1. FALLS WITH NEAR SYNCOPE AND QUESTIONABLE SYNCOPE. I am not able to verify whether the patient really had syncope especially with exertion most likely secondary to pulmonary hypertension. 2. CHRONIC OBSTRUCTIVE PULMONARY DISEASE WITH PULMONARY HYPERTENSION MOST LIKELY CAUSE OF PATIENT'S DESATURATION WITH EXERTION. 3. ALL INDEPENDENT EPISODES OF HYPOXEMIA ASSOCIATED WITH BRADYCARDIA. 4. BRADYCARDIA, STABLE, AND NORMAL PERFUSION AND NORMAL BLOOD PRESSURE, AND HENCE LIKELY NOT TO BE THE CAUSE OF THE PATIENT'S SYMPTOMS. 5. HYPERTENSION WELL CONTROLLED. 6. SEVERE PULMONARY HYPERTENSION. 7. HYPOTHYROIDISM. 8. HISTORY OF DEPRESSION. 9. 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 10. PAROXYSMAL ATRIAL FIBRILLATION WITH NO RECURRENCE. 11. AORTIC SCLEROSIS WITH MILD MITRAL REGURGITATION. 12. MODERATE TO SEVERE TRICUSPID REGURGITATION. 13. RENAL INSUFFICIENCY WITH SLIGHTLY WORSENING RENAL FUNCTION. Note, lisinopril has been held. 14. DESATURATION EPISODES MENTIONED EARLIER. Patient refuses to wear oxygen. PLAN: 1. Continue hydralazine at 25 mg p.o. q.8 hours. 2. Would continue the patient's sildenafil. 3. Continue her other current medications. 4. Note would recommend that the patient have a 30-day event monitor at the *------* facility that she is being transferred to. The social science teacher is working on getting her bed in *------* [facility]. TIME SPENT: Note 30 minutes spent on this patient with more than 50% of the time spent in direct patient care and also discussions with the attending physicians on the case. We will sign off the case. We will follow up the patient in the office. DICTATING PHYSICIAN: UBALDO ADDISON M.D. [id number] PHY#: [id number] ID: [id number] JOB#: [id number] ACCT: [id number] cc: >
[2016-06-16] MEDS: LEVOFLOXACIN 500 MG TABLET PO SCH (21:57)
[2016-06-17 05:16] LABS: ABSOLUTE BASOPHILS # (AUTO) 0.2 10^3/uL (0.0-0.2); ABSOLUTE EOSINOPHILS # (AUTO) 0.6 10^3/uL (0.0-0.6); ABSOLUTE NEUT (AUTO) 4.6 10^3/uL (1.7-8.2); BASOPHILS % (AUTO) 2.4 % (0-2); HEMOGLOBIN 13.1 g/dL (12.0-15.5); HGB HCT DIFFERENCE 0.3; LYMPHOCYTES % (AUTO) 31.9 % (13-45); MEAN CORPUSCULAR HGB CONC 33.7 g/dL (32.0-36.0); MEAN CORPUSCULAR VOLUME 89 fl (80-97); RED BLOOD COUNT 4.39 10^6/uL (3.72-5.28); RED CELL DISTRIBUTION WIDTH 13.4 % (11.5-14.0); SEGMENTED NEUTROPHILS % (AUTO) 48.7 % (42-78); WHITE BLOOD COUNT 9.5 10^3/uL (4.0-10.5)
[2016-06-17 05:38] LABS: ALANINE AMINOTRANSFERASE 31 U/L (9-52); ALBUMIN 3.6 g/dL (3.5-5.0); ALKALINE PHOSPHATASE 46 U/L (38-126); ANION GAP 12 (5-19); ASPARTATE AMINO TRANSFERASE 30 U/L (14-36); BILIRUBIN,TOTAL 0.6 mg/dL (0.2-1.3); BLOOD UREA NITROGEN 28 mg/dL (7-20); CALCIUM 10.1 mg/dL (8.4-10.2); CARBON DIOXIDE 24 mmol/L (22-30); CHLORIDE 105 mmol/L (98-107); CREATININE RESULT 1.28 mg/dL (0.52-1.25); GLUCOSE 96 mg/dL (75-110); POTASSIUM 3.9 mmol/L (3.6-5.0); SODIUM 141.4 mmol/L (137-145); TOTAL PROTEIN 6.4 g/dL (6.3-8.2)
[2016-06-17] MEDS: HYDRALAZINE HCL 25 MG TABLET PO SCH ×3 (05:59→22:04)
[2016-06-17] MEDS: LANSOPRAZOLE 30 MG TAB.RAP.DR PO SCH (05:59)
[2016-06-17] MEDS ORDERED: LEVOTHYROXINE SODIUM 0.075 MG TABLET PO SCH (07:31)
[2016-06-17] MEDS: LEVOTHYROXINE SODIUM 0.1 MG TABLET PO SCH (12:01)
[2016-06-17] MEDS: SILDENAFIL CITRATE 20 MG TABLET PO SCH ×3 (12:01→17:57)
[2016-06-17] MEDS: OXYBUTYNIN CHLORIDE 5 MG TABLET PO SCH ×2 (12:02→17:57)
[2016-06-17] MEDS: DOCUSATE SODIUM 100 MG CAPSULE PO SCH ×2 (12:02→17:57)
--- NOTE | 2016-06-17 15:50 | PDOC PROGRESS REPORT ---
Subjective Progress Note for:: 06/17/16 Subjective:: The patient states to feel much better. She looks much better this morning. She is up and eating breakfast. Both of her hearing aids are in place. Discussed my conversation with her son and need for rehabilitation and possible placement since the patient is not safe in my opinion to live on her own Physical Exam Vital Signs: Temp Pulse Resp BP Pulse Ox 98.2 F 44 L 19 160/39 H 95 06/17/16 04:00 06/17/16 07:00 06/17/16 04:00 06/17/16 04:00 06/17/16 04:00 Pulse Oximeter Nocturnal Start: 06/13/16 19: 50 Freq: RTQ4 Status: Complete Document 06/14/16 04:20 [facility] (Rec: 06/14/16 04:46 [facility] [id number]) Nocturnal Pulse Oximetry Equipment Usage Equipment in Use Oxygen Delivery Method (includes room Room Air air) O2 Sat by Pulse Oximetry (92-100) 92 Continuous SpO2 Machine # 7 Intake & Output 06/16/16 06/17/16 06/18/16 06:59 06:59 06:59 Intake Total 940 240 710 Output Total 500 Balance 940 240 210 Weight 73.7 kg 73.7 kg General appearance: PRESENT: no acute distress Head exam: PRESENT: atraumatic Eye exam: PRESENT: conjunctiva pink Neck exam: ABSENT: carotid bruit, JVD Respiratory exam: PRESENT: clear to auscultation concha Cardiovascular exam: PRESENT: bradycardia Pulses: PRESENT: normal carotid pulses Vascular exam: PRESENT: normal capillary refill GI/Abdominal exam: PRESENT: normal bowel sounds, soft Extremities exam: PRESENT: full ROM Neurological exam: PRESENT: alert, awake Results Laboratory Results: 06/17/16 04:54 06/17/16 04:54 06/17/16 06/17/16 06/17/16 04:54 04:54 04:54 WBC 9.5 RBC 4.39 Hgb 13.1 Hct 39.0 MCV 89 MCH 30.0 MCHC 33.7 RDW 13.4 Plt Count 155 Seg Neutrophils % 48.7 Lymphocytes % 31.9 Monocytes % 11.0 Eosinophils % 6.0 Basophils % 2.4 H Absolute Neutrophils 4.6 Absolute Lymphocytes 3.0 Absolute Monocytes 1.0 Absolute Eosinophils 0.6 Absolute Basophils 0.2 Sodium 141.4 Potassium 3.9 Chloride 105 Carbon Dioxide 24 Anion Gap 12 BUN 28 H Creatinine 1.28 H Est GFR ( Amer) 48 L Est GFR (Non-Af Amer) 39 L Glucose 96 Calcium 10.1 Total Bilirubin 0.6 AST 30 ALT 31 Alkaline Phosphatase 46 Total Protein 6.4 Albumin 3.6 TSH 13.80 H Impressions: Chest X-Ray 06/12/16 20:30 IMPRESSION: No acute cardiopulmonary findings. Assessment & Plan - Diagnosis (1) Bradycardia Is this a current diagnosis for this admission?: YesPlan: Possibly related to severe pulmonary hypertension with mild hypoxemia. The patient categorically refuses oxygen at home. (2) Pulmonary hypertension Is this a current diagnosis for this admission?: YesPlan: The patient started on sildenafil (3) Recurrent falls Is this a current diagnosis for this admission?: Yes (4) Paroxysmal atrial fibrillation Is this a current diagnosis for this admission?: YesPlan: Presently rate controlled and anticoagulated (5) Hypothyroidism Qualifiers: Hypothyroidism type: unspecified Qualified Code(s): E03.9 - Hypothyroidism, unspecified Is this a current diagnosis for this admission?: YesPlan: Continue present medications (6) Hypoxemia Is this a current diagnosis for this admission?: Yes (7) Hypertension Is this a current diagnosis for this admission?: Yes (8) Alkalosis, metabolic Is this a current diagnosis for this admission?: Yes (9) Chronic kidney disease (CKD) Qualifiers: Chronic kidney disease stage: stage 2 (mild) Qualified Code(s): N18.2 - Chronic kidney disease, stage 2 (mild) Is this a current diagnosis for this admission?: Yes (10) Dementia Is this a current diagnosis for this admission?: YesPlan: Possibly related to 4 age, small vessel disease, and exacerbated by hearing loss (11) Hearing loss Is this a current diagnosis for this admission?: Yes
[2016-06-17] MEDS: RIVAROXABAN 15 MG TABLET PO SCH (17:57)
[2016-06-17] MEDS: LEVOFLOXACIN 500 MG TABLET PO SCH (21:56)
[2016-06-18] MEDS: LANSOPRAZOLE 30 MG TAB.RAP.DR PO SCH (06:02)
[2016-06-18] MEDS: HYDRALAZINE HCL 25 MG TABLET PO SCH ×3 (06:03→21:40)
[2016-06-18] MEDS: DOCUSATE SODIUM 100 MG CAPSULE PO SCH ×2 (09:12→18:30)
[2016-06-18] MEDS: OXYBUTYNIN CHLORIDE 5 MG TABLET PO SCH ×2 (09:12→18:30)
[2016-06-18] MEDS: SILDENAFIL CITRATE 20 MG TABLET PO SCH ×3 (09:12→18:30)
[2016-06-18] MEDS: LEVOTHYROXINE SODIUM 0.1 MG TABLET PO SCH (09:12)
--- NOTE | 2016-06-18 17:12 | PDOC PROGRESS REPORT ---
Subjective Progress Note for:: 06/18/16 Subjective:: The patient looks in states to feel much better. With still awaiting a placement to a rehabilitation. Physical Exam Vital Signs: Temp Pulse Resp BP Pulse Ox 98.0 F 43 L 18 128/44 H 98 06/18/16 14:44 06/18/16 14:44 06/18/16 14:44 06/18/16 14:44 06/18/16 14:44 Pulse Oximeter Nocturnal Start: 06/13/16 19: 50 Freq: RTQ4 Status: Complete Document 06/14/16 04:20 [facility] (Rec: 06/14/16 04:46 [facility] [id number]) Nocturnal Pulse Oximetry Equipment Usage Equipment in Use Oxygen Delivery Method (includes room Room Air air) O2 Sat by Pulse Oximetry (92-100) 92 Continuous SpO2 Machine # 7 Intake & Output 06/17/16 06/18/16 06/19/16 06:59 06:59 06:59 Intake Total 240 1160 750 Output Total 500 Balance 240 660 750 Weight 73.7 kg 73.7 kg General appearance: PRESENT: no acute distress Head exam: PRESENT: atraumatic Eye exam: PRESENT: conjunctiva pink Neck exam: ABSENT: carotid bruit, JVD Respiratory exam: PRESENT: clear to auscultation concha Cardiovascular exam: PRESENT: bradycardia Pulses: PRESENT: +1 pedal pulses bilateral GI/Abdominal exam: PRESENT: normal bowel sounds, soft Extremities exam: PRESENT: full ROM Results Laboratory Results: 06/17/16 04:54 06/17/16 04:54 Impressions: Chest X-Ray 06/12/16 20:30 IMPRESSION: No acute cardiopulmonary findings. Assessment & Plan - Diagnosis (1) Bradycardia Is this a current diagnosis for this admission?: YesPlan: Possibly related to severe pulmonary hypertension with mild hypoxemia. The patient categorically refuses oxygen at home. (2) Pulmonary hypertension Is this a current diagnosis for this admission?: YesPlan: The patient started on sildenafil (3) Recurrent falls Is this a current diagnosis for this admission?: Yes (4) Paroxysmal atrial fibrillation Is this a current diagnosis for this admission?: YesPlan: Presently rate controlled and anticoagulated (5) Hypothyroidism Qualifiers: Hypothyroidism type: unspecified Qualified Code(s): E03.9 - Hypothyroidism, unspecified Is this a current diagnosis for this admission?: YesPlan: Continue present medications (6) Hypoxemia Is this a current diagnosis for this admission?: Yes (7) Hypertension Is this a current diagnosis for this admission?: Yes (8) Alkalosis, metabolic Is this a current diagnosis for this admission?: Yes (9) Chronic kidney disease (CKD) Qualifiers: Chronic kidney disease stage: stage 2 (mild) Qualified Code(s): N18.2 - Chronic kidney disease, stage 2 (mild) Is this a current diagnosis for this admission?: YesPlan: Possibly medications related. We have stopped the medications and rehydrated (10) Dementia Is this a current diagnosis for this admission?: YesPlan: Possibly related to 4 age, small vessel disease, and exacerbated by hearing loss (11) Hearing loss Is this a current diagnosis for this admission?: Yes
[2016-06-18] MEDS: RIVAROXABAN 15 MG TABLET PO SCH (18:30)
[2016-06-19] MEDS: LANSOPRAZOLE 30 MG TAB.RAP.DR PO SCH (05:58)
[2016-06-19] MEDS: HYDRALAZINE HCL 25 MG TABLET PO SCH ×3 (05:58→22:09)
[2016-06-19 06:42] LABS: ABSOLUTE BASOPHILS # (AUTO) 0.2 10^3/uL (0.0-0.2); ABSOLUTE EOSINOPHILS # (AUTO) 0.5 10^3/uL (0.0-0.6); ABSOLUTE LYMPHOCYTES (AUTO) 3.4 10^3/uL (0.5-4.7); ABSOLUTE NEUT (AUTO) 3.8 10^3/uL (1.7-8.2); BASOPHILS % (AUTO) 2.5 % (0-2); EOSINOPHILS % (AUTO) 5.7 % (0-6); HEMATOCRIT 40.8 % (36.0-47.0); HEMOGLOBIN 13.1 g/dL (12.0-15.5); HGB HCT DIFFERENCE -1.5; LYMPHOCYTES % (AUTO) 37.9 % (13-45); MEAN CORPUSCULAR HGB CONC 32.1 g/dL (32.0-36.0); MEAN CORPUSCULAR VOLUME 90 fl (80-97); MONOCYTES % (AUTO) 10.9 % (3-13); RED BLOOD COUNT 4.51 10^6/uL (3.72-5.28); RED CELL DISTRIBUTION WIDTH 13.6 % (11.5-14.0); WHITE BLOOD COUNT 8.9 10^3/uL (4.0-10.5)
[2016-06-19 06:58] LABS: ALANINE AMINOTRANSFERASE 34 U/L (9-52); ALKALINE PHOSPHATASE 45 U/L (38-126); ANION GAP 12 (5-19); ASPARTATE AMINO TRANSFERASE 33 U/L (14-36); BILIRUBIN,TOTAL 0.7 mg/dL (0.2-1.3); BLOOD UREA NITROGEN 24 mg/dL (7-20); CARBON DIOXIDE 25 mmol/L (22-30); CHLORIDE 106 mmol/L (98-107); CREATININE RESULT 1.16 mg/dL (0.52-1.25); GLUCOSE 97 mg/dL (75-110); POTASSIUM 4.2 mmol/L (3.6-5.0); SODIUM 142.7 mmol/L (137-145); TOTAL PROTEIN 6.6 g/dL (6.3-8.2)
[2016-06-19] MEDS: LEVOTHYROXINE SODIUM 0.1 MG TABLET PO SCH (08:02)
[2016-06-19] MEDS: SILDENAFIL CITRATE 20 MG TABLET PO SCH ×3 (08:02→17:47)
[2016-06-19] MEDS: DOCUSATE SODIUM 100 MG CAPSULE PO SCH ×2 (10:16→17:47)
[2016-06-19] MEDS: OXYBUTYNIN CHLORIDE 5 MG TABLET PO SCH ×2 (10:16→17:47)
--- NOTE | 2016-06-19 17:25 | PDOC PROGRESS REPORT ---
Subjective Progress Note for:: 06/19/16 Subjective:: The patient states to feel much better. Physical Exam Vital Signs: Temp Pulse Resp BP Pulse Ox 98.0 F 45 L 16 133/36 H 95 06/19/16 11:38 06/19/16 15:08 06/19/16 11:38 06/19/16 15:08 06/19/16 11:38 Pulse Oximeter Nocturnal Start: 06/13/16 19: 50 Freq: RTQ4 Status: Complete Document 06/14/16 04:20 [facility] (Rec: 06/14/16 04:46 [facility] [id number]) Nocturnal Pulse Oximetry Equipment Usage Equipment in Use Oxygen Delivery Method (includes room Room Air air) O2 Sat by Pulse Oximetry (92-100) 92 Continuous SpO2 Machine # 7 Intake & Output 06/18/16 06/19/16 06/20/16 06:59 06:59 06:59 Intake Total 1160 990 421 Output Total 500 2 Balance 660 990 419 Weight 73.7 kg 73.9 kg General appearance: PRESENT: no acute distress Head exam: PRESENT: atraumatic Eye exam: PRESENT: conjunctiva pink Neck exam: ABSENT: carotid bruit Respiratory exam: PRESENT: clear to auscultation concha Cardiovascular exam: PRESENT: bradycardia Pulses: PRESENT: +1 pedal pulses bilateral Vascular exam: PRESENT: normal capillary refill GI/Abdominal exam: PRESENT: normal bowel sounds, soft Extremities exam: PRESENT: full ROM Musculoskeletal exam: PRESENT: ambulatory Neurological exam: PRESENT: alert Results Laboratory Results: 06/19/16 05:53 06/19/16 05:53 06/19/16 06/19/16 05:53 05:53 WBC 8.9 RBC 4.51 Hgb 13.1 Hct 40.8 MCV 90 MCH 29.0 MCHC 32.1 RDW 13.6 Plt Count 151 Seg Neutrophils % 43.0 Lymphocytes % 37.9 Monocytes % 10.9 Eosinophils % 5.7 Basophils % 2.5 H Absolute Neutrophils 3.8 Absolute Lymphocytes 3.4 Absolute Monocytes 1.0 Absolute Eosinophils 0.5 Absolute Basophils 0.2 Sodium 142.7 Potassium 4.2 Chloride 106 Carbon Dioxide 25 Anion Gap 12 BUN 24 H Creatinine 1.16 Est GFR ( Amer) 53 L Est GFR (Non-Af Amer) 44 L Glucose 97 Calcium 10.0 Total Bilirubin 0.7 AST 33 ALT 34 Alkaline Phosphatase 45 Total Protein 6.6 Albumin 4.0 Impressions: Chest X-Ray 06/12/16 20:30 IMPRESSION: No acute cardiopulmonary findings. Assessment & Plan - Diagnosis (1) Bradycardia Is this a current diagnosis for this admission?: YesPlan: Possibly related to severe pulmonary hypertension with mild hypoxemia. The patient categorically refuses oxygen at home. (2) Pulmonary hypertension Is this a current diagnosis for this admission?: YesPlan: The patient started on sildenafil (3) Recurrent falls Is this a current diagnosis for this admission?: Yes (4) Paroxysmal atrial fibrillation Is this a current diagnosis for this admission?: Yes (5) Hypothyroidism Qualifiers: Hypothyroidism type: unspecified Qualified Code(s): E03.9 - Hypothyroidism, unspecified Is this a current diagnosis for this admission?: Yes (6) Hypoxemia Is this a current diagnosis for this admission?: Yes (7) Hypertension Is this a current diagnosis for this admission?: Yes (8) Alkalosis, metabolic Is this a current diagnosis for this admission?: Yes (9) Chronic kidney disease (CKD) Qualifiers: Chronic kidney disease stage: stage 2 (mild) Qualified Code(s): N18.2 - Chronic kidney disease, stage 2 (mild) Is this a current diagnosis for this admission?: Yes (10) Dementia Is this a current diagnosis for this admission?: YesPlan: Possibly related to 4 age, small vessel disease, and exacerbated by hearing loss (11) Hearing loss Is this a current diagnosis for this admission?: Yes - Plan Summary Plan Summary: Long discussion on the phone with the patient's son Jose Ramirez. He states that in his opinion his mother can be on her own with just occasional visit from either home health or relatives. He states that she did well for over 5 weeks while she was visiting in [place]. I advised him that I'm still concerned about her living on her own but I will follow his recommendation and discharged home with home health.
[2016-06-19] MEDS: RIVAROXABAN 15 MG TABLET PO SCH (17:47)
[2016-06-20] MEDS: HYDRALAZINE HCL 25 MG TABLET PO SCH (05:43)
[2016-06-20] MEDS: LANSOPRAZOLE 30 MG TAB.RAP.DR PO SCH (05:43)
[2016-06-20 09:05] VITALS: BP 148/44
--- NOTE | 2016-06-20 09:56 | PDOC DISCHARGE SUMMARY ---
General - Admit/Disc Date/PCP Admission Date/Primary Care Provider: 06/12/16 23:43 BECCA SIFUENTES, Discharge Date: 06/20/16 - Discharge Diagnosis (1) Bradycardia Is this a current diagnosis for this admission?: YesSummary: Presently asymptomatic. We will obtain at 30 day event monitor as an outpatient (2) Pulmonary hypertension Is this a current diagnosis for this admission?: YesSummary: Controlled with medication. We'll continue with sidafenil (3) Recurrent falls Is this a current diagnosis for this admission?: Yes (4) Paroxysmal atrial fibrillation Is this a current diagnosis for this admission?: Yes (5) Hypothyroidism Is this a current diagnosis for this admission?: YesSummary: The TSH was elevated possibly either to noncompliance or too low of a dose which was readjusted (6) Hypoxemia Is this a current diagnosis for this admission?: Yes (7) Hypertension Is this a current diagnosis for this admission?: Yes (8) Alkalosis, metabolic Is this a current diagnosis for this admission?: Yes (9) Chronic kidney disease (CKD) Is this a current diagnosis for this admission?: Yes (10) Dementia Is this a current diagnosis for this admission?: Yes (11) Hearing loss Is this a current diagnosis for this admission?: Yes - Additional Information Resuscitation Status: Full Code Discharge Diet: As Tolerated Discharge Activity: Activity As Tolerated, Balance Activity w/Rest Home Medications: Levothyroxine Sodium [Synthroid 0.075 mg Tablet] 0.075 mg PO DAILY 06/13/16 Lisinopril [Prinivil 5 mg Tablet] 5 mg PO DAILY 06/13/16 Oxybutynin Chloride [Ditropan 5 mg Tablet] 5 mg PO BID 06/13/16 Rivaroxaban [Xarelto 10 mg Tablet] 20 mg PO WSUPPER 06/13/16 Acetaminophen [Tylenol 325 mg Tablet] 650 mg PO Q4HP PRN #0 tablet 06/20/16 Docusate Sodium [Colace 100 mg Capsule] 100 mg PO BID #0 capsule 06/20/16 Hydralazine HCl [Apresoline 25 mg Tablet] 50 mg PO Q8 #0 tablet 06/20/16 Lansoprazole [Prevacid 30 mg Odt Tablet] 30 mg PO Q6AM #0 tab.rap 01/27/17 Levothyroxine Sodium [Synthroid 0.1 mg Tablet] 0.1 mg PO QAM #0 tablet 06/20/16 Sildenafil Citrate [Revatio 20 mg Tablet] 20 mg PO MEALS #0 tablet 06/20/16 History of Present Illness History of Present Illness: SONIA FRANKS is a 89 year old female Hospital Course Hospital Course: The patient did well. She did not have any recurrence of near syncope is. For further conversations with the patient and the family about possible discharge please refer to the previous progress notes Physical Exam Vital Signs: Temp Pulse Resp BP Pulse Ox 97.6 F 89 20 148/44 H 97 06/20/16 09:11 06/20/16 09:11 06/20/16 09:11 06/20/16 09:11 06/20/16 09:11 Pulse Oximeter Nocturnal Start: 06/13/16 19: 50 Freq: RTQ4 Status: Complete Document 06/14/16 04:20 [facility] (Rec: 06/14/16 04:46 [facility] [id number]) Nocturnal Pulse Oximetry Equipment Usage Equipment in Use Oxygen Delivery Method (includes room Room Air air) O2 Sat by Pulse Oximetry (92-100) 92 Continuous SpO2 Machine # 7 Intake & Output 06/19/16 06/20/16 06/21/16 06:59 06:59 06:59 Intake Total 990 881 325 Output Total 2 Balance 990 879 325 Weight 73.9 kg 73.9 kg General appearance: PRESENT: no acute distress, hard of hearing Head exam: PRESENT: atraumatic Eye exam: PRESENT: conjunctiva pink Neck exam: ABSENT: carotid bruit, JVD Respiratory exam: PRESENT: clear to auscultation concha Cardiovascular exam: PRESENT: bradycardia Pulses: PRESENT: +1 pedal pulses bilateral Vascular exam: PRESENT: normal capillary refill GI/Abdominal exam: PRESENT: normal bowel sounds, soft Extremities exam: PRESENT: full ROM Musculoskeletal exam: PRESENT: ambulatory Neurological exam: PRESENT: alert Results Laboratory Results: 06/19/16 05:53 06/19/16 05:53 Impressions: Chest X-Ray 06/12/16 20:30 IMPRESSION: No acute cardiopulmonary findings. Plan Discharge Plan: After the conversation with her son who requested that the patient be discharged home with home health arrangements have been made. We will discuss with cardiology and electrophysiology about a an event monitor 30 days prior to any further interventions. I have explained to the family that it is my opinion that the patient should not be living on her own. Time Spent: Greater than 30 Minutes
== END 2016-06-20 09:50 | disposition home or self-care (01) | DRG 315 ==
LOC: ER 17:45 → OBSVTOIN 23:43 → EH 23:43 → UNDOADMOB 23:54 → 3N 06-13 03:15 → 4W 06-14 01:09
PROVIDERS: ADMIT Family Medicine; ATTEND Family Medicine
DX: I27.2 Other secondary pulmonary hypertension (principal); E87.3 Alkalosis; R00.1 Bradycardia, unspecified; R09.02 Hypoxemia; I48.0 Paroxysmal atrial fibrillation; F03.90 Unspecified dementia, unspecified severity, without behavioral disturbance, psychotic disturbance, mood disturbance, and anxiety; Z91.81 History of falling; Z79.02 Long term (current) use of antithrombotics/antiplatelets; J44.9 Chronic obstructive pulmonary disease, unspecified; I07.1 Rheumatic tricuspid insufficiency; R55 Syncope and collapse; I12.9 Hypertensive chronic kidney disease with stage 1 through stage 4 chronic kidney disease, or unspecified chronic kidney disease; N18.2 Chronic kidney disease, stage 2 (mild); H91.90 Unspecified hearing loss, unspecified ear; Z53.20 Procedure and treatment not carried out because of patient's decision for unspecified reasons; Z60.2 Problems related to living alone; Z88.2 Allergy status to sulfonamides; Z90.710 Acquired absence of both cervix and uterus
CPT/HCPCS: 36415; 36600; 71010; 80048; 80053; 82803; 83735; 84439; 84443; 84484; 85025; 93005; 93010; 93306; 94762; 96360; 96361; 99285; G8978-GP; G8979-GP; J1644; J1956; J7030